=== PATIENT | female | born 1965 | race Caucasian/White ===

== ENCOUNTER 2019-10-13 18:56 | Emergency (ER) | payer BC, OTHER ==
[~2019-10-13] VITALS: Ht 165.1 cm; Wt 84.1 kg
[~2019-10-13 18:56] MED LIST: DESO1TAB PO; DIPH25CA83 PO; GLUC100017; IBUP-1985
[2019-10-13 19:01] VITALS: BP 160/87
--- NOTE | 2019-10-13 19:20 | NUR ---
Spouse has pictures of how the rash has grown in size/redness and now wounds are weeping yellow sangenous and very tender.
[2019-10-13] MEDS ORDERED: triamcinolone acetonide 40mg/ml inj IM ONE (19:40)
[2019-10-13] MEDS ORDERED: diphenhydrAMINE 2%/zinc acetate cream TP ONE (19:40)
[2019-10-13] MEDS ORDERED: PRED20TA PO ×2 (20:25→20:27)
== END 2019-10-13 20:40 | disposition home or self-care (01) ==
LOC: ER 18:56
DX: L23.7 Allergic contact dermatitis due to plants, except food (principal); E78.00 Pure hypercholesterolemia, unspecified; I10 Essential (primary) hypertension; E11.9 Type 2 diabetes mellitus without complications; Z79.899 Other long term (current) drug therapy
CPT/HCPCS: 96372; 99283; J3301